=== PATIENT | female | born 1960 | race Caucasian/White ===

== ENCOUNTER 2019-09-09 13:01 | Emergency (ER) | payer BC, OTHER ==
--- NOTE | 2019-09-09 13:26 | EDM.PDOC ---
ED HPI GENERAL MEDICAL PROBLEM - General Chief Complaint: Laceration Stated Complaint: HURT FOOT Time Seen by Provider: 09/09/19 13:10 Source of Information: Reports: Patient History Limitations: Reports: No Limitations - History of Present Illness INITIAL COMMENTS - FREE TEXT/NARRATIVE: Patient comes into the emergency department with complaint of a laceration to the right foot. Patient states that she was cutting logs with a chainsaw and ended up slipping on the log in her chain saw connected with the right part of her greater toe. Patient was able to control the bleeding with manual pressure prior to arrival. Patient states the only discomfort she has a burning sensation when she moves that extremity. She denies any numbness tingling or range of motion concerns. She last had her tetanus in 2016. Onset: Sudden Quality: Reports: Ache, Throbbing Severity: Mild Improves with: Reports: None Worsens with: Reports: None Context: Reports: Other Associated Symptoms: Reports: No Other Symptoms Right Foot Pain Score (Numeric/FACES): 5 - Related Data Allergies Allergy/AdvReac Type Severity Reaction Status Date / Time codeine Allergy Itching Verified 09/09/19 13:07 Penicillins Allergy Pain Verified 09/09/19 13:07 Home Meds: Home Meds Amitriptyline [Elavil] 100 mg PO BEDTIME 09/09/19 [History] Citalopram [Citalopram HBr] 20 mg PO DAILY 09/09/19 [History] Simvastatin 40 mg PO DAILY 09/09/19 [History] tiZANidine [Zanaflex] 4 mg PO DAILY 09/09/19 [History] Past Medical History Cardiovascular History: Reports: High Cholesterol Psychiatric History: Reports: Anxiety Social & Family History - Tobacco Use Smoking Status *Q: Unknown Ever Smoked ED ROS GENERAL - Review of Systems Review Of Systems: Comprehensive ROS is negative, except as noted in HPI. Constitutional: Reports: No Symptoms HEENT: Reports: No Symptoms Respiratory: Reports: No Symptoms Cardiovascular: Reports: No Symptoms Endocrine: Reports: No Symptoms GI/Abdominal: Reports: No Symptoms : Reports: No Symptoms Musculoskeletal: Reports: No Symptoms Neurological: Reports: No Symptoms Psychiatric: Reports: No Symptoms Hematologic/Lymphatic: Reports: No Symptoms Immunologic: Reports: No Symptoms ED EXAM, SKIN/RASH Exam: See Below Exam Limited By: No Limitations General Appearance: Alert, WD/WN, No Apparent Distress Head: Atraumatic, Normocephalic Neck: Normal Inspection, Supple, Non-Tender, Full Range of Motion Respiratory/Chest: No Respiratory Distress, Lungs Clear, Chest Non-Tender Cardiovascular: Normal Peripheral Pulses, Regular Rate, Rhythm, No Edema Peripheral Pulses: 4+: Dorsalis Pedis (L), Dorsalis Pedis (R) Extremities: Other (right foot later aspect great toe- superficial avulsion with skin attached 1.5cm length. minimal bleeding noted, debri on the skin, no redness or swelling. CMS and ROM intact ) Neurological: Alert, Oriented, Normal Gait Course - Vital Signs Last Recorded V/S: Last Vital Signs Temp 37.0 C 09/09/19 13:01 Pulse 94 09/09/19 13:01 Resp 18 09/09/19 13:01 BP 134/52 L 09/09/19 13:01 Pulse Ox 97 09/09/19 13:01 Departure - Departure Time of Disposition: 13:35 Disposition: Home, Self-Care 01 Condition: Good Clinical Impression: Skin avulsion - Discharge Information *PRESCRIPTION DRUG MONITORING PROGRAM REVIEWED*: Not Applicable *COPY OF PRESCRIPTION DRUG MONITORING REPORT IN PATIENT GLORIA: Not Applicable Instructions: Sutures, [place], or Adhesive Wound Closure, [id number] Additional Instructions: 1. Rest 2. Keep the area clean and dry 3. Can use tylenol and ibuprofen as needed for pain and discomfort 4. Diet as tolerated 5. Activity as tolerated 6. Elevated the injured area above the level of the heart to decrease swelling and discomfort if applicable 7. Can use ice 3-4 times a day at 20-minute intervals to help with any swelling and discomfort 8. Follow-up with your primary care provider symptoms continue or to progress 9. Discharge information has been provided regarding your injury and wound care has been provided 10. Avoid an public pools or hot tubes until wound is healed. Sepsis Event Note (ED) - Evaluation Sepsis Screening Result: No Definite Risk - Focused Exam Vital Signs: Vital Signs Temp Pulse Resp BP Pulse Ox 09/09/19 13:01 37.0 C 94 18 134/52 L 97 - Assessment/Plan Assessment:: 1. skin avulsion right foot Plan: 1. Wound cleansing completed 2. skin adhesion applied to 1.5cm superficial skin avulsion 3. Tdap vaccine history completed 4. Education regarding wound care, dressing changes, OTC medications, activity, diet, follow up care and when to seek care if warrented provided 5. Patient is to return to the clinic in 10 days to have sutures site evaluated and removed 6. Patient was encouraged to call or return if any questions or concerns arise.
== END 2019-09-09 13:37 | disposition home or self-care (01) ==
LOC: VM.ED 13:01
DX: S91.301A Unspecified open wound, right foot, initial encounter (principal); E78.00 Pure hypercholesterolemia, unspecified; F41.9 Anxiety disorder, unspecified; Z88.5 Allergy status to narcotic agent; Z88.0 Allergy status to penicillin; Z79.899 Other long term (current) drug therapy; W27.0XXA Contact with workbench tool, initial encounter
CPT/HCPCS: 99282; 99283-GF